=== PATIENT | female | born 1960 | race Caucasian/White ===

== ENCOUNTER 2022-10-11 12:59 | Outpatient (CLI) | payer OTHER | END 2022-10-11 13:00 | disposition home or self-care (01) | LOC: SC 12:59 | PROVIDERS: ATTEND Nurse Practitioner Family | DX: Z53.9 Procedure and treatment not carried out, unspecified reason (principal) ==

== ENCOUNTER 2022-12-27 14:29 | Outpatient (CLI) | payer OTHER ==
[2022-12-27 15:32] VITALS: BP 132/84
--- NOTE | 2022-12-27 15:32 | SLEEP CARE CONSULTATION ---
Information from patient questionnaire entered by Zora Mensah. I have reviewed and concur with the information entered by Zora Mensah. This document represents the service I personally performed and the decisions made by me, Reuben Acosta MD, [facility]. History of Present Illness Service Date and Time: 12/27/2022 1429 Reason for Visit: New patient Usual bedtime: 1030PM Time it takes to fall asleep: 30MIN Snores at night: Yes Observed to quit breathing while asleep: Yes Sleeps alone due to snoring: Yes Number of times waking at night: 3 Reasons for waking at night: reports: Bathroom Toss, Turn, or Twitch while sleeping: Yes Recalls having dreams: Yes Usually gets out of bed at: 9AM Feels refreshed in the morning: No Morning headache: Yes Sleepy or fatigued during the day: Yes Ever fallen asleep while driving: No Dreams during day naps: Yes Prior sleep studies: Yes Additional HPI information: I had the pleasure of seeing Ms. Glynn today regarding obstructive sleep apnea- hypopnea. As you know, she is a 62-year-old lady who was diagnosed originally in 2016 in [place] with the sleep-disordered breathing. She was prescribed a CPAP device set at 10 - 13 cmH2O. She had another sleep study at [facility] in [place] on 11/20/21. The AHI was 24.2 and liang oxygen saturation, 86%. She never went back for the results because the sleep center went out of business. Presently, she has a Paz CPAP that she is not using due to lack of supplies. She was able to use her original [employer] DreamStation autoCPAP but had to return it because of the recall. She wore a full face mask. Without the CPAP she continues to snore loudly. - Parasomnia Symptoms Ever been unable to move upon waking from sleep: Yes Walks in sleep: No Talks in sleep: Yes Ever acted out dreams in sleep: Yes Ever felt weak in the knees when startled or emotional: Yes Bothered by creepy, crawly, restless sensations in legs: Yes Problems with memory or concentration: Yes Subjective Initial [place] Sleepiness Scale score: 7 (12/27/22) Past Medical History Past Medical History: reports: Hypertension, Hypothyroidism Social History The patient's occupation is a RE. Patient is and lives in [place]. Have you smoked in the past 12 months: Yes Alcohol use: No Caffeine use: No Family History Family history of sleep disordered breathing: Yes Family Hx Sleep Apnea: Mother: Snoring, Sleep apnea - Treated, Other: Snoring Allergies and Home Medications Known drug allergies: Yes (FREYA) Drug allergies reviewed: Yes Home medication list reviewed: Yes Review of Systems Weight gain over past 5 years: 20 Weight loss over past 5 years: 40 Cardiovascular: reports: high blood pressure Respiratory: denies: shortness of breath, wheeze, sputum production, chronic cough, other Gastrointestinal: denies: heartburn, difficulty swallowing, nausea, vomitting, diarrhea, abdominal pain, other Urinary: denies: incontinence, frequency, urgency, impotence, other Neurological: denies: headaches, seizure, head trauma, disorientation, speech dysfunction, gait or balance problems, fainting or unconsciousness, other Psychiatric: denies: Attention Deficit Hyperactivity, anxiety, depression, mood disorder, claustrophobia, other Ear/Nose/Throat: reports: nasal congestion, sinus problems, dry mouth/throat, injury to nose Endocrine: reports: thyroid disease, excessive thirst, increased urination Musculoskeletal: reports: back pain, muscle pain or cramping Immunologic: reports: sneezing Physical Exam Vital signs obtained and entered by: ZORA Peña MA Blood Pressure: 132/84 (LEFT ARM) Cuff size: regular Heart Rate: 97 O2 Saturation: 95 Height: 5 ft 2 in Weight: 201 lb 6.4 oz Body Mass Index: 36.8 BMI Classification: Obese Neck circumference: 16.5 Mood/affect: Normal HEENT: No craniofacial malformation Nostrils: partially obstructed Turbinates: normal Septum: midline Mouth and throat: narrow oropharynx Soft palate: long Hard palate: normal Uvula: normal Uvula visualization: 25% Mallampati Class III Tongue: normal in size Tonsils: small Chin and jaw: normal size and position Neck: normal w/o lymphadenopathy or thyromegaly Heart: regular rate and rhythm Lungs: clear bilaterally Extremities: no edema or clubbing Neurologic: intact Impression and Plan IMPRESSION: 1. Obstructive Sleep Apnea-Hypopnea Syndrome, moderate, as previously diagnosed. The patient is presently not using her CPAP due to lack of supplies. She cannot remember who her durable medical supplier was. She would like new supplies so that she could get back on the treatment. Narrow oropharynx and obesity are common predisposing factors for obstructive sleep apnea-hypopnea syndrome. Plan: 1. prescription made for CPAP supplies through [employer] 2. Try to lose weight. 3. Avoid alcohol, sedative and muscle relaxants around bedtime. 4. Return for a follow up after she is using her CPAP regularly for a month. Prescriptions: Device supplies Follow up with Sleep Care in: 3 months Follow up recommended for: Weight management Visit Type: In Office Time Spent with Patient (minutes): 15 Provider Statement: I spent 100% of the Face to Face Visit with the patient with greater than 50% spent counseling the patient and coordination of care.
== END 2022-12-27 14:30 | disposition home or self-care (01) ==
LOC: SC 14:29
PROVIDERS: ATTEND Nurse Practitioner Family
DX: G47.33 Obstructive sleep apnea (adult) (pediatric) (principal); E66.9 Obesity, unspecified; Z68.36 Body mass index [BMI] 36.0-36.9, adult
CPT/HCPCS: 99202; 99212